=== PATIENT | male | born 1950 | race Caucasian/White ===

== ENCOUNTER 2021-04-23 09:27 | Day surgery (SDC) | payer BC, SELFPAY ==
[~2021-04-23] VITALS: Ht 190.5 cm; Wt 88.5 kg
[2021-04-23] MEDS ORDERED: methylPREDNISolone ACETATE 40 MG/ML IM ONE (09:28)
[2021-04-23] MEDS ORDERED: BUPIVACAINE /PF 0.25% 30 ML VIAL INJ ONE (09:28)
[2021-04-23] MEDS ORDERED: LIDOCAINE 2%, 20 ML MDV INJ ONE (09:28)
[2021-04-23] MEDS ORDERED: IOHEXOL 300 mgI/mL, 50 mL INFUS..BTL IV ONE (09:28)
[2021-04-23] MEDS: MIDAZOLAM HCL 5 MG/5 ML VIAL ONE ×2 (10:55→10:59)
[2021-04-23 13:29] VITALS: BP_SYST 168
[2021-04-23] MEDS ORDERED: DIPHENHYDRAMINE INJ 50 MG/ML VIAL ONE (15:13)
== END 2021-04-23 12:05 | disposition home or self-care (01) ==
LOC: SDS 09:27 → SMU 09:28 → SDS 12:05
PROVIDERS: ATTEND Internal Medicine
DX: M51.16 Intervertebral disc disorders with radiculopathy, lumbar region (principal); Z79.899 Other long term (current) drug therapy; Z20.822 Contact with and (suspected) exposure to COVID-19
CPT/HCPCS: 36415; 62323; 82962; 87426; J1030; J1200; J2001; J2250; J3490; Q9967; 76000